=== PATIENT | male | born 1985 | race Caucasian/White ===

== ENCOUNTER 2020-08-20 12:06 | Emergency (ER) | payer OTHER ==
[~2020-08-20] VITALS: Ht 190.5 cm; Wt 83.9 kg
[2020-08-20] MEDS ORDERED: Percocet 5-3251 EACH PO (15:43)
== END 2020-08-20 16:02 | disposition home or self-care (01) ==
LOC: ER 12:06
DX: S43.004A Unspecified dislocation of right shoulder joint, initial encounter (principal); Z88.0 Allergy status to penicillin; W01.0XXA Fall on same level from slipping, tripping and stumbling without subsequent striking against object, initial encounter; Y93.89 Activity, other specified
CPT/HCPCS: 23650; 73030; 96374-59; 96375-59; 99283-25; J1170; J2405; J3010